=== PATIENT | female | born 1965 | race Caucasian/White ===

== ENCOUNTER 2017-10-13 00:17 | Emergency (ER) | payer BC, OTHER ==
[2017-10-13] MEDS ORDERED: Ondansetron INJ* 2 MG/ML VIAL IV ONE (00:59)
[2017-10-13] MEDS ORDERED: Morphine INJ* 4 MG/ML 1 ML CARPUJECT IV ONE ×2 (00:59→03:39)
[2017-10-13] MEDS ORDERED: NS 0.9% 1000 ML* 1,000 ML IV ONE (00:59)
[2017-10-13 01:30] LABS: Hematocrit 41 % (35-47); Mean Corpuscular HGB Conc 34 g/dl (31-36); Mean Corpuscular Hemoglobin 31 pg (27-31); Mean Corpuscular Volume 90 fL (80-97); Mean Platelet Volume 8 um3 (7.4-10.4); Red Blood Count 4.58 10^6/ul (4.0-5.4); Red Cell Distribution Width 14 % (10.5-15); White Blood Count 8.8 10^3/ul (3.5-10.8)
[2017-10-13 01:43] LABS: Albumin 4.1 g/dL (3.2-5.2); BUN/Creatinine Ratio 10.7 (8-20); Calcium 9.4 mg/dL (8.6-10.3); EGFR African American 91.9 (>60); EGFR Non-African American 71.5 (>60); Globulin 2.7 g/dL (2-4); Potassium 3.9 mmol/L (3.5-5.0); Total Protein 6.8 g/dL (6.4-8.9)
[2017-10-13] MEDS ORDERED: Iohexol 300* (CONTRAST) 10 ML SDV IV ONE (03:24)
[2017-10-13 03:34] LABS: Urine Bilirubin Negative (Negative); Urine Glucose Negative (Negative); Urine Nitrite Negative (Negative)
[2017-10-13 05:02] VITALS: BP 132/92
--- NOTE | 2017-10-13 05:44 | ED ---
Gumaro Wong Angela, scribed for Owen Brooks on 10/13/17 at 0104 . Abdominal Pain/Female - HPI Summary HPI Summary: This pt is a 51 y/o female presenting to [facility] c/o LLQ abd pain x2 days. Pt denies any past surgical history. She denies nausea, vomiting, fever, bloody stools. No vaginal bleeding or discharge. NKDA. Pt notes she drinks alcohol occasionally, but denies tobacco use. - History of Current Complaint Chief Complaint: EDAbdPain Stated Complaint: LEFT ABD PAIN Time Seen by Provider: 10/13/17 00:56 Hx Obtained From: Patient Onset/Duration: Lasting Days, Still Present Timing: Days Severity Currently: Moderate Pain Intensity: 6 Pain Scale Used: 0-10 Numeric Location: Discrete At: LLQ Radiates: No Associated Signs and Symptoms: Positive: Negative Allergies/Adverse Reactions: Allergies Allergy/AdvReac Type Severity Reaction Status Date / Time No Known Allergies Allergy Verified 10/13/17 00:22 PMH/Surg Hx/FS Hx/Imm Hx Endocrine/Hematology History: Denies: Hx Diabetes Cardiovascular History: Reports: Hx Hypertension - ON MEDS Denies: Hx Pacemaker/ICD History: Denies: Hx Renal Disease Sensory History: Denies: Hx Hearing Aid Psychiatric History: Denies: Hx Panic Disorder - Cancer History Hx Chemotherapy: No Hx Radiation Therapy: No - Surgical History Surgery Procedure, Year, and Place: BREAST REDUCTION 2012. GALLBLADDER 2009 - Immunization History Date of Tetanus Vaccine: utd Date of Influenza Vaccine: none Infectious Disease History: No Infectious Disease History: Denies: Traveled Outside the [place] in Last 30 Days - Family History Known Family History: Positive: Hypertension, Other - cancer Negative: Diabetes - Social History Alcohol Use: Occasionally Substance Use Type: Reports: None Smoking Status (MU): Never Smoked Tobacco Review of Systems Negative: Fever, Chills Positive: Abdominal Pain. Negative: Vomiting, Nausea, Other - bloody stools Negative: discharge, other - vaginal bleeding All Other Systems Reviewed And Are Negative: Yes Physical Exam - Summary Physical Exam Summary: Appearance: Well appearing, no pain distress Skin: warm, dry, reflects adequate perfusion Head/face: normal Eyes: EOMI, DANE ENT: normal Neck: supple, nontender Respiratory: CTA, breath sounds present Cardiovascular: RRR, pulses symmetrical Abdomen: soft, severe tenderness in the left lower quadrant. Bowel: present Musculoskeletal: normal, strength/ROM intact Neuro: normal, sensory motor intact, A&Ox3 Triage Information Reviewed: Yes Vital Signs On Initial Exam: Initial Vitals Temp Pulse Resp BP Pulse Ox 96.2 F 77 16 141/93 100 10/13/17 00:19 10/13/17 00:19 10/13/17 00:19 10/13/17 00:19 10/13/17 00:19 Vital Signs Reviewed: Yes - [place] Coma Scale Coma Scale Total: 15 Diagnostics - Vital Signs Vital Signs Temp Pulse Resp BP Pulse Ox 10/13/17 00:19 96.2 F 77 16 141/93 100 - Laboratory Result Diagrams: 10/13/17 01:10 10/13/17 01:10 Lab Statement: Any lab studies that have been ordered have been reviewed, and results considered in the medical decision making process. - CT Abdomen/pelvis CT CT Interpretation: Positive (See Comments) - IMPRESSION: acute epiploic appendagitis along proximal sigmoid colon. No bowel obstruction, colitis, diverticulitis, free fluid or free air. Normal appendix. Unremarkable pancreas. Small nonobstructing stone bilateral kidneys, similar to 01/04/11. Cholecystectomy. Dr. Brooks has reviewed this radiology report. CT Interpretation Completed By: Radiologist Re-Evaluation - Re-Evaluation First Eval Re-Evaluation Time: 04:31 Comment: I discussed the CT results with the pt. Abdominal Pain Fem Course/Dx - Course Course Of Treatment: Pt is a 51 y/o female who presents with LLQ abd pain x2 days. Bloodwork and CT abdomen/pelvis were obtained. Abdomen/pelvis CT shows acute epiploic appendagitis. Pt will be discharged to home and was given a surgery referral (follow up in 2 days). Prescription for Motrin PRN for pain was algo given. - Diagnoses Provider Diagnoses: Abdominal pain, Epiploic appendagitis Discharge - Discharge Plan Condition: Stable Disposition: HOME Prescriptions: Ibuprofen TAB* [Motrin TAB* 600 MG] 600 mg PO Q8H PRN #20 tab MDD 3 PRN Reason: Pain Patient Education Materials: Abdominal Pain (ED) Referrals: Lita Perkins MD [Primary Care Provider] - Kolton Guardado MD [Medical Doctor] - 2 Days Additional Instructions: Please follow up with surgeon, Dr. Guardado, in 2 days. RETURN TO THE ED FOR ANY WORSENING SYMPTOMS in 48 HOURS. The documentation as recorded by the Gumaro bartlett Angela accurately reflects the service I personally performed and the decisions made by , Owen Brooks.
--- NOTE | 2017-10-13 08:22 | RAD ---
INDICATION: Left lower quadrant pain. Evaluate for acute diverticulitis COMPARISON: CT January 04, 2011 TECHNIQUE: Axial source images were obtained from the hemidiaphragms to the symphysis pubis following administration of oral and intravenous contrast. 92 mL Omnipaque 300 was utilized. Coronal and sagittal reconstructed images were acquired. Lung bases: The lung bases are clear. Liver: The liver is normal in size. There are no masses. There is mild intrahepatic ductal dilatation which is likely related to postcholecystectomy state. Gallbladder: Cholecystectomy. Spleen: The spleen is normal in size. There are no masses. Pancreas: There is no focal pancreatic mass or ductal dilatation. Adrenal glands: There is no evidence of adrenal mass. Kidneys: The kidneys are normal in size and position. There are prompt nephrograms and there is prompt excretion bilaterally. There are no renal parenchymal masses. There are small nonobstructive renal calculi noted bilaterally, unchanged. A 3 mm calculus is present in the midpole and right and a 5 mm calculus is present in the lower pole and the left. Adenopathy: There is no evidence of adenopathy by size criteria. Fluid collections: There are no free or localized fluid collections. Vessels:There are no significant atherosclerotic changes involving the aorta. There is no focal aneurysm. The iliac vessels are normal in caliber. The IVC appears normal. GI tract: There are no acute CT bowel findings. There is no obstruction. The stomach and small bowel appear normal. The lower GI tract is normal. The cecum, ileocecal valve, and terminal ileum appear normal. The appendix is visualized and appear normal. Pelvic organs: The uterus and adnexa appear normal. There is an IUD in expected position Bladder: There are no bladder masses. Abdominal and pelvic soft tissues: The extraperitoneal abdominal and pelvic soft tissues appear normal.. Osseous structures: There are no acute osseous findings. Other: None IMPRESSION: NO ACUTE CT FINDINGS. BILATERAL NONOBSTRUCTIVE NEPHROLITHIASIS, UNCHANGED.
== END 2017-10-13 05:11 | disposition home or self-care (01) ==
LOC: ED 00:17
DX: R10.32 Left lower quadrant pain (principal); K63.89 Other specified diseases of intestine
CPT/HCPCS: 36415; 74177; 80053; 81003; 83605; 83690; 84702; 85025; 85610; 85730; 96374; 96375; 99283; J2270; J2405; Q9967